=== PATIENT | female | born 1985 | race Native Hawaiian/Other Pacific Islander ===

== ENCOUNTER 2018-04-21 15:01 | Emergency (ER) | payer OTHER ==
[2018-04-21 15:43] VITALS: TEMP 98.6; O2SAT 100
--- NOTE | 2018-04-21 17:03 | ED PDOC ---
HPI: Chest Pain Time Seen by Provider: 04/21/18 16:12 Chief Complaint (Nursing): Chest Pain History Per: Patient, Family () Additional Complaint(s): Pt. states for the past 2-3 weeks she's had intermittent L sided non-radiating chest pain that worsens with deep inspiration. Pt. states for the past 2 days she's noticed that when the lights are off she begins to feel panicked and scared. States symptoms also occur when she is in enclosed spaces like in the shower. Pt. states when she turns on the light or when she gets out of the shower symptoms resolve. Panicked feeling lasts for only 1 minute. Also states that she feels SOB during these events. Currently without any symptoms such as chest pain, SOB, or anxiety. Denies fever, hx of DVT or PE, trauma, cough, hemoptysis, leg pain, SI/HI, hallucinations, hx of anxiety, illicit drug use, palpitations. Past Medical History Reviewed: Historical Data, Nursing Documentation, Vital Signs Vital Signs: Last Vital Signs Temp 98.6 F 04/21/18 15:40 Pulse 75 04/21/18 19:25 Resp 16 04/21/18 19:25 BP 125/80 04/21/18 19:25 Pulse Ox 100 04/21/18 19:25 - Medical History PMH: Denies: Cardia Arrhythmia, CHF, Diabetes, Deep Vein Thrombosis, HTN, Hypercholesterolemia, Hyperlipidemia, Pulmonary Embolism - Surgical History Surgical History: (x - 2011) - Family History Family History: States: No Known Family Hx - Home Medications Home Medications: Ambulatory Orders Medication Instructions Recorded No Known Home Med 04/21/18 - Allergies Allergies/Adverse Reactions: Allergies Allergy/AdvReac Type Severity Reaction Status Date / Time No Known Allergies Allergy Verified 04/21/18 15:40 NYA Risk Score for UA/NSTEMI - NYA Risk Score Age > 64: NO 3 or more CAD Risk Factors: NO Known CAD (Stenosis greater than 50%): NO Aspirin use in past 7 days: NO Severe Angina: NO EKG ST changes greater than 0.5mm: NO Positive Cardiac Marker: NO NYA Score: 0 Risk %: 5% Wells Criteria for PE - Wells Criteria for Pulmonary Embolism Clinical Signs and Symptoms of DVT: No P.E is #1 Diagnosis, or Equally Likely: No Heart Rate >100: No Immobilization at least 3 days;Surgery previous 4 weeks: No Previous, objectively diagnosed PE or DVT: No Hemoptysis: No Malignancy w/treatment within 6 months, or palliative: No Total Score: 0 Review of Systems ROS Statement: Except As Marked, All Systems Reviewed And Found Negative Cardiovascular: Positive for: Chest Pain Respiratory: Positive for: Shortness of Breath, Pleuritic Pain Psych: Positive for: Anxiety. Negative for: Depression, Suicidal ideation Physical Exam - Reviewed Nursing Documentation Reviewed: Yes Vital Signs Reviewed: Yes - Physical Exam Appears: Positive for: Well, Non-toxic, No Acute Distress (calm, cooperative, smiling, jovial) Head Exam: Positive for: ATRAUMATIC, NORMAL INSPECTION, NORMOCEPHALIC Skin: Positive for: Normal Color, Warm. Negative for: Rash Eye Exam: Positive for: EOMI, Normal appearance, PERRL Neck: Positive for: Normal, Painless ROM Cardiovascular/Chest: Positive for: Regular Rate, Rhythm, Chest Non Tender. Negative for: Tachycardia, Irregularly Irregular Respiratory: Positive for: Normal Breath Sounds. Negative for: Wheezing, Respiratory Distress Gastrointestinal/Abdominal: Positive for: Normal Exam, Soft. Negative for: Tenderness Back: Positive for: Normal Inspection Extremity: Positive for: Normal ROM Neurologic/Psych: Positive for: Alert, Oriented. Negative for: Aphasia, Facial Droop - Laboratory Results Result Diagrams: 04/21/18 17:07 04/21/18 17:07 - ECG ECG: Positive for: Interpreted By Mn ECG Rhythm: Positive for: Sinus Rhythm. Negative for: ST/T Changes Rate: 79 O2 Sat by Pulse Oximetry: 100 - Radiology X-Ray: Interpreted by Me (CXR) X-Ray Interpretation: No Acute Disease - Progress ED Course And Treament: Labs, CXR ordered. Pt.placed on athletic monitor. Disposition - Clinical Impression Clinical Impression: Chest pain, Anxiety - Patient ED Disposition Is Patient to be Admitted: No - Disposition Referrals: [facility] [place] [Outside] [facility] [Outside] Disposition: Routine/Home Disposition Time: 19:06 Condition: STABLE Additional Instructions: Follow up with [facility] for further evaluation. Return to ED immediately if symptoms worsen. Instructions: Chest Pain That Is Not Caused by the Heart (DC), Anxiety, Adult ( DC) Forms: [employer] [facility] (Spanish)
[2018-04-21 17:11] LABS: BASO # 0.1 K/uL (0.0-0.2); BASO % 0.4 % (0.0-2.0); EOS # 0.1 K/uL (0.0-0.7); EOS % 0.4 % (0.0-4.0); HEMOGLOBIN 10.9 g/dL (12.0-16.0); LYMPH % 26.7 % (20.0-40.0); MEAN CELL VOLUME 71.1 fl (81.0-99.0); MEAN CORPUSCULAR HEMOGLOBIN 22.6 pg (27.0-31.0); MEAN CORPUSCULAR HGB CONC 31.7 g/dL (33.0-37.0); MEAN PLATELET VOLUME 7.8 fl (7.2-11.7); MONO # 0.8 K/uL (0.0-0.8); MONO % 5.2 % (0.0-10.0); NEUT % 67.3 % (50.0-75.0); NRBC % 0.1 % (0.0-0.0); RBC 4.82 Mil/uL (3.80-5.20); RED CELL DISTRIBUTION WIDTH 16.7 % (11.5-14.5); WHITE BLOOD COUNT 14.9 K/uL (4.8-10.8)
[2018-04-21 17:24] LABS: ALB/GLOB RATIO 1.3 (1.0-2.1); ALBUMIN 4.8 g/dL (3.5-5.0); ALT/SGPT 24 U/L (9-52); AST/SGOT 24 U/L (14-36); BLOOD UREA NITROGEN 15 mg/dl (7-17); CALCIUM 9.3 mg/dL (8.4-10.2); GFR NON-AFRICAN AMERICAN > 60
--- NOTE | 2018-04-21 18:37 | RAD ---
HISTORY: Chest pain. COMPARISON: No prior. TECHNIQUE: Chest PA and lateral FINDINGS: LUNGS: No active pulmonary disease. PLEURA: No significant pleural effusion identified. No pneumothorax apparent. CARDIOVASCULAR: Normal. OSSEOUS STRUCTURES: No significant abnormalities. VISUALIZED UPPER ABDOMEN: Normal. OTHER FINDINGS: None. IMPRESSION: No active disease.
[2018-04-21 19:26] VITALS: BP 125/80; RESP 16
--- NOTE | 2018-04-24 10:28 | CARD ---
APPROVED REPORT EKG Measurement Heart [id number] <Conclusion> Normal sinus rhythm Normal ECG
[2018-04-24 22:05] VITALS: PULSE 79
== END 2018-04-21 19:26 | disposition home or self-care (01) ==
LOC: H.ER 15:01 → EDBD 15:01 → H.ER 19:26
DX: R07.89 Other chest pain (principal); F41.9 Anxiety disorder, unspecified